=== PATIENT | female | born 1990 | race Two or more races ===

== ENCOUNTER 2020-05-14 00:03 | Emergency (ER) | payer SELFPAY ==
[~2020-05-14] VITALS: Ht 154.9 cm; Wt 65.8 kg
[2020-05-14 00:12] VITALS: BP 136/87
[2020-05-14] MEDS ORDERED: MAG HYDROX/AL HYDROX/SIMETH 30 ML UDC ONE (00:22)
[2020-05-14] MEDS ORDERED: LIDOCAINE VISCOUS 2% UD 15 ML UDC ONE (00:22)
[2020-05-14] MEDS ORDERED: ONDANSETRON 4 MG TAB.RAPDIS ONE (00:22)
[2020-05-14] MEDS ORDERED: ONDANSETRON 4 MG TAB.RAPDIS SL ONE (00:30)
[2020-05-14] MEDS ORDERED: LIDOCAINE VISCOUS 2% UD 15 ML UDC MM ONE (00:30)
[2020-05-14] MEDS ORDERED: MAG HYDROX/AL HYDROX/SIMETH 30 ML UDC PO ONE (00:30)
== END 2020-05-14 01:53 | disposition home or self-care (01) ==
LOC: ER 00:06
DX: K29.60 Other gastritis without bleeding (principal)
CPT/HCPCS: 99283; Q0162